=== PATIENT | female | born 1965 | race Caucasian/White ===

== ENCOUNTER 2017-08-05 14:20 | Emergency (ER) | payer OTHER ==
[~2017-08-05] VITALS: Ht 162.6 cm; Wt 64.9 kg
[~2017-08-05 14:20] MED LIST: ACID REDUCER10 MG PO; ACYCLOVIR400 MG PO; EFFEXOR XR37.5 MG PO; L-METHYL-B6-B11 EACH PO; MAPAP325 MG PO; OXYCODON-ACETA1 EAC2 PO; PRILOSEC20 MG PO; SERTRALINE HCL25 MG PO; VITAMIN B-125000 MCG SL; VITAMIN D1000 UNI1 PO; VITAMIN E400 UNI4 PO; ZYRTEC10 M3 PO
--- NOTE | 2017-08-06 22:41 | EKG ---
[facility] [address] [facility] [place] [address] Signed Normal sinus rhythm with sinus arrhythmia Normal ECG No previous ECGs available Confirmed by NINA LANE MD ([id number]) on 08/06/2017 10:40:46 PM Electronically Signed By: NINA LANE MD 08/06/17 2241 PATIENT NAME: GIL WALLRUPERT Flores Electrocardiogram DATE OF : 67 PHYSICIAN: NINA LANE MD REPORT #: [id number] REPORT IS CONFIDENTIAL AND NOT TO BE RELEASED WITHOUT AUTHORIZATION
[2018-01-07] MEDS ORDERED: FLONASE ALLERG9.9 ML NAS (09:24)
[2018-01-07] MEDS ORDERED: BENADRYL25 MG PO (09:24)
== END 2017-08-05 16:38 | disposition home or self-care (01) ==
LOC: ED 14:20
DX: R00.2 Palpitations (principal); Z79.899 Other long term (current) drug therapy
CPT/HCPCS: 36415; 80053; 84443; 84484; 85025; 93005; 93010; 99284

== ENCOUNTER 2021-03-11 10:54 | Emergency (ER) | payer OTHER ==
[~2021-03-11] VITALS: Ht 162.6 cm; Wt 70.1 kg
[~2021-03-11 10:54] MED LIST changes: +BENADRYL25 MG PO; +BIOTIN1000 MCG PO; +CALCIUM 1,0001 EACH PO; +COLLAGEN PLUS1 EACH PO; +DICLOFENAC SODI75 MG PO; +FLONASE ALLERG9.9 ML NAS; +FOLBIC RF TABL1 EACH PO; +FOLIC ACID0.8 MG PO; +HYDROXYZINE HCL50 MG PO; +MAGNESIUM400 MG PO; +MEBOLIC TABLET1 EACH PO; +MENOPAUSE SUPPO20 MG PO; +RITUXAN10 MG/1 ML IV; +SUDAFED 12 HOU120 MG PO; +VENLAFAXINE HCL75 MG PO
[2021-03-11] MEDS ORDERED: AZELASTINE137 MCG/0. NAS (11:10)
[2021-03-11] MEDS ORDERED: ZITHROMAX250 MG PO (12:11)
[2021-03-11] MEDS ORDERED: ONDANSETRON ODT8 MG PO (12:11)
== END 2021-03-11 14:19 | disposition home or self-care (01) ==
LOC: ED 10:54
DX: U07.1 COVID-19 (principal); J12.82 Pneumonia due to coronavirus disease 2019; Z79.899 Other long term (current) drug therapy
CPT/HCPCS: 71045; 80053; 85025; 96374; 96375; 99284-25; C9803; J0456; J2405; J7030; J7060; U0003

== ENCOUNTER 2021-03-14 13:13 | Emergency (ER) | payer OTHER ==
[~2021-03-14] VITALS: Ht 162.6 cm; Wt 70.1 kg
[~2021-03-14 13:13] MED LIST changes: +AZELASTINE137 MCG/0. NAS; +ONDANSETRON ODT8 MG PO; +ZITHROMAX250 MG PO
--- OUTSIDE RECORDS SUMMARY | 2021-03-14 13:20 | XMS ---
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 Josiah has no Care Guidelines for this patient. Shawna V[facility] (12 MO.) [facility] T[facility] NOTE: Visits indicate total known visits. ED/C VISIT TRACKING (12 MO.) 03/14[facility]2021 13:[facility] COMPLAINT: - COVID +, SOB 03/11/2021 10:[address] [facility] TYPE: Emergency COMPLAINT: - COVID+, UNABLE TO EAT, DEHYDRATED, FEVER DIAGNOSES: - COVID-19 - Other senior care (current) drug therapy - Nausea with vomiting, unspecified INPATIENT VISIT TRACKING (12 MO.) No inpatient visits to display in this time frame [id number]
[2021-03-14] MEDS ORDERED: AZITHROMYCIN250 MG PO (13:36)
[2021-03-14] MEDS ORDERED: DECADRON6 MG PO (16:01)
[2021-03-14] MEDS ORDERED: ONDANSETRON ODT8 MG PO (16:01)
== END 2021-03-14 16:26 | disposition home or self-care (01) ==
LOC: ED 13:13
DX: U07.1 COVID-19 (principal); J12.82 Pneumonia due to coronavirus disease 2019; Z79.899 Other long term (current) drug therapy
CPT/HCPCS: 71045; 80053; 85025; 96374; 96375; 99285-25; J1100; J2405; J7030

== ENCOUNTER 2023-07-12 22:51 | Emergency (ER) | payer OTHER ==
[~2023-07-12] VITALS: Ht 162.6 cm; Wt 69.9 kg
[~2023-07-12 22:51] MED LIST changes: +AZITHROMYCIN250 MG PO; +DECADRON6 MG PO
[2023-07-12] MEDS ORDERED: CEPHALEXIN500 M1 PO (23:38)
[2023-07-12 23:57] VITALS: BP 134/70
== END 2023-07-12 23:55 | disposition home or self-care (01) ==
LOC: ED 22:51
DX: L03.115 Cellulitis of right lower limb (principal); R10.9 Unspecified abdominal pain; Z79.899 Other long term (current) drug therapy
CPT/HCPCS: 99282; A9270